=== PATIENT | female | born 1945 | race Caucasian/White ===

== ENCOUNTER → 2018-09-03 12:37 | Outpatient (CLI) | payer MEDICARE, SELFPAY ==
--- NOTE | 2018-09-03 12:40 | XR_ITS ---
XR DEXA axial skeleton HISTORY: ITS.REASON: OSTEOPENIA ORDERING PHYSICIAN: Chele Gibbs MD PATIENT AGE: 73 years COMPARISON: 07/15/2016 FINDINGS: The BMD measured at the Right femoral neck is 0.723 g/cm squared with a T score of -2.3. This is considered Osteopenic according to the World Health Organization criteria. Fracture risk is Moderate. Treatment is advised. The L1 L4 density has a T score of 0.2. The L-spine density has decreased by 4.4%. The hip density has decreased by 3.7%. There is moderate levoscoliosis IMPRESSION: Osteopenia with moderate fracture risk. Treatment is advised. Suggest follow-up exam August 2020
== END ==
PROVIDERS: PCP Internal Medicine Adolescent Medicine; Visit Provider Internal Medicine Adolescent Medicine
DX: M85.89 Other specified disorders of bone density and structure, multiple sites (principal)
CPT/HCPCS: 77080

== ENCOUNTER → 2019-01-24 12:55 | Outpatient (CLI) | payer MEDICARE, SELFPAY ==
--- NOTE | 2019-01-24 13:00 | XR_ITS ---
XR wrist LT min 3V HISTORY pain following injury ITS.REASON: LT WRIST INJURY ORDERING PHYSICIAN: Chele Gibbs MD PATIENT AGE: 73 years Comparison: None FINDINGS: No fracture or dislocation. No lytic or blastic change. There is normal mineralization . 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 IMPRESSION: No acute fracture. 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
--- NOTE | 2019-01-24 13:00 | XR_ITS ---
XR hand LT min 3V HISTORY: Pain following injury ITS.REASON: LT WRIST INJURY ORDERING PHYSICIAN: Chele Gibbs MD PATIENT AGE: 73 years FINDINGS: Transverse fracture involves the distal aspect of the fifth metacarpal at the metaphyseal diaphyseal junction with mild ulnar displacement and angulation of the distal fracture fragment. Artifact is present from patient's ring at the proximal phalanx of the fourth digit which could obscure an underlying fracture. Osteoarthritic changes are present at the first metacarpal carpal joint and at the DIP of the second, third, and fifth digits and the interphalangeal joint of the first digit. IMPRESSION: Mildly displaced fracture distal aspect of the fifth metacarpal
== END ==
PROVIDERS: PCP Internal Medicine Adolescent Medicine; Visit Provider Internal Medicine Adolescent Medicine
DX: S69.92XA Unspecified injury of left wrist, hand and finger(s), initial encounter (principal)
CPT/HCPCS: 73110; 73130

== ENCOUNTER → 2019-02-03 08:26 | Outpatient (CLI) | payer MEDICARE, SELFPAY ==
--- NOTE | 2019-02-03 08:33 | XR_ITS ---
PROCEDURE: XR HAND LT MIN 3V CLINICAL INDICATION: hand fracture Follow-up fracture COMPARISON: from 01/24/2019 FINDINGS: There is a splint present along the ulnar aspect of the hand and wrist and distal forearm stabilizing the minimally displaced fracture of the distal 5th metacarpal Osteoarthritic changes of the 1st metacarpal-carpal joint once again noted with periarticular calcification Other findings:None. IMPRESSION: Good alignment status post closed reduction 5th metacarpal fracture Dictated by: Damián Harris MD 02/03/2019 10:41 Signed by: <Electronically signed by Damián Harris MD in OV> 02/03/2019 10:41
== END ==
PROVIDERS: PCP Internal Medicine Adolescent Medicine; Visit Provider Orthopaedic Surgery
DX: S62.92XA Unspecified fracture of left hand, initial encounter for closed fracture (principal)
CPT/HCPCS: 73130

== ENCOUNTER → 2020-11-16 14:20 | Outpatient (CLI) | payer MEDICARE, SELFPAY ==
[2020-11-16 14:53] LABS: Basophils % 0.7 % (0.1-2.0); Eosinophils # 0.2 K/mm3 (0.0-0.4); Eosinophils % 4.5 % (0.1-12.0); Hematocrit 36.9 % (37.0-47.0); Hemoglobin 12.4 g/dL (12.2-16.2); Lymphocytes % 23.8 % (10-50); Mean Corpuscular HGB Conc 33.6 g/dL (31.8-35.4); Mean Corpuscular Hemoglobin 30.4 pg (27.0-31.2); Mean Corpuscular Volume 90.5 fl (81-99); Monocytes # 0.4 K/mm3 (0.1-1.0); Monocytes % 9.4 % (1.7-9.3); Neutrophils # 2.6 K/mm3 (1.8-7.8); Neutrophils % 61.6 % (37.0-80.0); Platelet Count 267 K/mm3 (142-424); Red Blood Count 4.08 M/mm3 (4.20-5.40); Red Cell Distribution Width 12.1 % (11.5-17.5); White Blood Count 4.2 K/mm3 (4.8-10.8)
[2020-11-16 15:08] LABS: Chloride 106 mmol/L (98-107); Sodium 141 mmol/L (136-145)
[2020-11-16 15:09] LABS: Potassium 4.8 mmoL/L (3.5-5.1)
[2020-11-16 15:11] LABS: Alanine Aminotransferase 41 U/L (12-78); Albumin Level 4.2 g/dl (3.5-5.0); Albumin/Globulin Ratio 1.3 (1.1-1.8); Alkaline Phosphatase 100 U/L (38-126); Anion Gap 13.8 mEq/L (5-15); Aspartate Amino Transferase 65 U/L (14-36); Bilirubin,Total 0.6 mg/dl (0.2-1.3); Blood Urea Nitrogen 11 mg/dl (7-17); Carbon Dioxide 26 mmol/L (22.0-30.0); Cholesterol 156 mg/dl (140-200); Estimated Glomerular Filt Rate 49 ml/min (>60); GFR (African American) 59 ML/MIN (>60); Globulin 3.2 g/dL (1.3-3.2); Glucose 97 mg/dl (74-100); Total Protein,Serum 7.4 g/dl (6.3-8.2); Triglycerides 73 mg/dl (30-150); VLDL Cholesterol 15 mg/dL (0-40)
[2020-11-16 15:12] LABS: Chol/HDL Ratio 2.6 (1-3.5); HDL Cholesterol 60 mg/dl (40-60)
[2020-11-16 15:23] LABS: Direct LDL Cholesterol 68.86 mg/dL (100-129)
== END ==
PROVIDERS: Visit Provider Internal Medicine Adolescent Medicine
DX: E78.5 Hyperlipidemia, unspecified (principal)
CPT/HCPCS: 36415; 80053; 80061; 85025

== ENCOUNTER → 2021-03-25 14:40 | Outpatient (CLI) | payer MEDICARE, SELFPAY ==
[2021-03-25 15:14] LABS: Basophils % 0.9 % (0.1-2.0); Eosinophils # 0.2 K/mm3 (0.0-0.4); Eosinophils % 3.7 % (0.1-12.0); Hemoglobin 12.5 g/dL (12.2-16.2); Lymphocytes # 1.2 K/mm3 (0.7-4.5); Lymphocytes % 27.7 % (10-50); Mean Corpuscular HGB Conc 32.8 g/dL (31.8-35.4); Mean Corpuscular Hemoglobin 30.7 pg (27.0-31.2); Mean Corpuscular Volume 93.6 fl (81-99); Mean Platelet Volume 7.9 fl (7.4-10.4); Monocytes # 0.3 K/mm3 (0.1-1.0); Monocytes % 8.2 % (1.7-9.3); Neutrophils # 2.5 K/mm3 (1.8-7.8); Neutrophils % 59.6 % (37.0-80.0); Platelet Count 232 K/mm3 (142-424); Red Blood Count 4.06 M/mm3 (4.20-5.40); Red Cell Distribution Width 12.3 % (11.5-17.5); White Blood Count 4.2 K/mm3 (4.8-10.8)
[2021-03-25 15:41] LABS: Alanine Aminotransferase 27 U/L (12-78); Albumin Level 3.7 g/dl (3.5-5.0); Albumin/Globulin Ratio 1.1 (1.1-1.8); Alkaline Phosphatase 73 U/L (38-126); Anion Gap 9.2 mEq/L (5-15); Aspartate Amino Transferase 49 U/L (14-36); Bilirubin,Total 0.2 mg/dl (0.2-1.3); Blood Urea Nitrogen 9 mg/dl (7-17); Calcium 8.7 mg/dl (8.4-10.2); Carbon Dioxide 28 mmol/L (22.0-30.0); Chloride 106 mmol/L (98-107); Chol/HDL Ratio 2.3 (1-3.5); Cholesterol 139 mg/dl (140-200); Estimated Glomerular Filt Rate 61 ml/min (>60); GFR (African American) 74 ML/MIN (>60); Globulin 3.4 g/dL (1.3-3.2); Glucose 72 mg/dl (74-100); HDL Cholesterol 60 mg/dl (40-60); Potassium 4.2 mmoL/L (3.5-5.1); Sodium 139 mmol/L (136-145); Total Protein,Serum 7.1 g/dl (6.3-8.2); Triglycerides 58 mg/dl (30-150); VLDL Cholesterol 12 mg/dL (0-40)
[2021-03-25 15:53] LABS: Direct LDL Cholesterol 58.83 mg/dL (100-129)
[2021-03-25 15:59] LABS: 25-OH Vitamin D, Total 67.6 ng/mL (30-100)
== END ==
PROVIDERS: Visit Provider Internal Medicine Adolescent Medicine
DX: E78.5 Hyperlipidemia, unspecified (principal); M85.89 Other specified disorders of bone density and structure, multiple sites
CPT/HCPCS: 36415; 80053; 80061; 82306; 85025

== ENCOUNTER → 2021-12-03 14:13 | Outpatient (POV) | payer MEDICARE, SELFPAY | PROVIDERS: Visit Provider Dermatology | DX: Z00.00 Encounter for general adult medical examination without abnormal findings (principal) ==

== ENCOUNTER 2024-11-28 07:52 | Outpatient (CLI) | payer MEDICARE, SELFPAY ==
--- OUTSIDE RECORDS SUMMARY | 2024-09-17 17:30 | XMS_ITS ---
Author Organization [facility] Address [address] [place] [address] Care Team Providers Care Medical Charge Entry Specialist Name Role Phone Chele Gibbs Primary Care Provider Migration, Provider Unavailable Unavailable REASON FOR VISIT [facility] To [facility] Conversion Encounter Medications Medication SIG (Take, Route, Frequency, Duration) Notes Start Date End Date Status Atorvastatin Calcium 40 MG 1 tab(s) orally once a day for 90 days Active busPIRone HCl 10 MG 1 tab(s) orally 2 times a day for 30 day(s) 03/26/2022 Active Triamcinolone Acetonide 0.1 % APPLY a thin layer TOPICALLY TO THE AFFECTED AREA(S) EVERY DAY for 30 Active PARoxetine HCl 30 MG 1 tab(s) orally once a day for 90 days Active Famotidine 20 MG 1 tab(s) orally 2 times a day for 90 days Active Tylenol Extra Strength 500 MG 2 tab(s) at bedtime Active CENTRUM SILVER WOMEN'S THERAPEUTIC MULTIPLE VITAMINS WITH MINERALS 1/2 TAB ORALLY ONCE A DAY *Please review for potential replacement for e-prescription and drug interaction check* Active Caltrate 600+D Plus Minerals 600-800 MG-UNIT 1 tab(s) orally once a day for 30 days 07/18/2016 Active Voltaren 1 % 2 g applied topically 4 times a day for 30 day(s) prn 09/23/2021 Active metroNIDAZOLE 0.75 % 1 navdeep applied topically 2 times a day for 30 days 03/26/2022 Active Encounters Encounter Location Date Provider Diagnosis [facility] [address] [place] [address] 09/17/2024 Provider Migration Plan Of Treatment Next Appt Details Provider Name:Chele Gibbs, 12/05/2024 09:15:00 AM, [address], [address], [place], [address], Progress Notes * Jimena LOPEZ SDOB:[birth year] (79 yo F)Acc No.[id number]:09/17/2024 Patient: Jimena DE JESUS S Provider: Clyde Burroughs :1945 A ge:79 Y S ex:Female Date:09/17/2024 Address:[address] [place] [address], [address], [place], [id number] Pcp:Chele Gibbs Subjective: * Chief Complaints: * 1 . [facility] To [facility]pan Conversion Encounter. * Medical History: * Medications: T aking Tylenol Extra Strength 500 MG Tablet 2 tab(s) at bedtime , Taking CENTRUM SILVER WOMEN'S THERAPEUTIC MULTIPLE VITAMINS WITH MINERALS TABLET 1/2 TAB ORALLY ONCE A DAY , Notes to Pharmacist: *Please review for potential replacement for e-prescription and drug interaction check*, Taking Caltrate 600+D Plus Minerals 600-800 MG-UNIT Tablet 1 tab(s) orally once a day , Taking Voltaren 1 % Gel 2 g applied topically 4 times a day , Notes to Pharmacist: prn, Taking metroNIDAZOLE 0.75 % Gel 1 navdeep applied topically 2 times a day , Taking busPIRone HCl 10 MG Tablet 1 tab(s) orally 2 times a day , Taking Triamcinolone Acetonide 0.1 % Cream APPLY a thin layer TOPICALLY TO THE AFFECTED AREA(S) EVERY DAY , Taking PARoxetine HCl 30 MG Tablet 1 tab(s) orally once a day , Taking Famotidine 20 MG Tablet 1 tab(s) orally 2 times a day , Taking Atorvastatin Calcium 40 MG Tablet 1 tab(s) orally once a day Objective: * Vitals: Assessment: Plan: * Treatment: * * Electronic signature of Prov ider Migration on 11/28/2024 at 07:53 AM EDT Sign off status: Pending * Provider: Clyde parrish Migration Date: 0 09/17/2024 Generated for Annalise rosales/Terra/Janelle on: 0 11/28/2024 07:53 AM EDT
--- OUTSIDE RECORDS SUMMARY | 2024-10-05 05:00 | XMS_ITS ---
Author Organization [facility] Address [address] [facility] [address] [facility] [address] [place] [address] Care Team Providers Care Blueprint Duplicator Name Role Phone Chele Gibbs Primary Care Provider Allergies No Known Allergies Reason For Referral Reason Please set up DEXA s can Diagnosis 1 Osteopenia of multip le sites (M85.89) Referral [facility] Referring Provider First Name Chele Referring Provider Last Name Bernie Referring Provider Speciality Internal M edicine Referred Organization Referred Address [address] [facility] [address] [facility], [place], [place],[address], Referred Provider Specialty Diagnostic R adiology General Notes TraYordanie 2024 02:33:40 PM >No precert required per [facility]- Sent to [facility] to schedule appt Referral Priority Routine REASON FOR VISIT 3 month check up, Medicare AWV Medications Medication SIG (Take, Route, Frequency, Duration) Notes Start Date End Date Status Meloxicam 7.5 MG 1 tablet Orally Once a day for 30 days 10/05/2024 Active Famotidine 20 MG 1 tab(s) orally 2 times a day for 90 days Active PARoxetine HCl 30 MG 1 tab(s) orally once a day for 90 days Active Triamcinolone Acetonide 0.1 % APPLY a thin layer TOPICALLY TO THE AFFECTED AREA(S) EVERY DAY for 30 Active Atorvastatin Calcium 40 MG 1 tab(s) orally once a day for 90 days Active Caltrate 600+D Plus Minerals 600-800 MG-UNIT 1 tab(s) orally once a day for 30 days 07/18/2016 Active CENTRUM SILVER WOMEN'S THERAPEUTIC MULTIPLE VITAMINS WITH MINERALS 1/2 TAB ORALLY ONCE A DAY *Please review for potential replacement for e-prescription and drug interaction check* Active Tylenol Extra Strength 500 MG 2 tab(s) at bedtime Active Problems Problem Type SNOMED Code ICD Code Onset Dates Problem Status W/U Status Risk Notes Problem [id number] Kyphoscoliosis (M41.9) Active confirmed Vital Signs Temperature 97.6 degrees Fahrenheit 10/06/19 25 Blood pressure systolic 120 mm Hg 10/06/19 25 Blood pressure diastolic 84 mm Hg 025 Heart Rate 76 /min 10/05/2024 Height 5 ft 5 in in 10/05/2024 Weight 125.6 lbs 10/05/2024 BMI 20.9 kg/m2 10/05/2024 Encounters Encounter Location Date Provider [facility] [address] [place] [address] 10/05/2024 Chele Gibbs Osteopenia of multip le sites M85.89 ; Generalized anxiety disorder F41.1 ; Mild episode of recurrent major depressive disorder F33.0 ; Low back pain at multiple sites M54.50 ; Kyphoscoliosis M41.9 and Routine medical exam Z00.00 Assessments Encounter Date Diagnosis (ICD Code) Assessment Notes Treatment Notes Treatment Clinical Notes Section Notes 10/05/2024 Osteopenia of multiple sites (ICD-10 - M85.89) Will reschedule DEXA, patient remains on low-dose bisphosphonate 10/05/2024 Generalized anxiety disorder (ICD-10 - F41.1) Doing well on Lexapro and other medications, is a great support 10/05/2024 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 No changes in plan 10/05/2024 Low back pain at multiple sites (ICD-10 - M54.50) Trial of meloxicam for chronic arthritic and back pain follow-up in 2 months for labs 10/05/2024 Kyphoscoliosis (ICD-10 - M41.9) Patient declines PT. Will check DEXA scan 10/05/2024 Routine medical exam (ICD-10 - Z00.00) Given patient''s advanced age is not a candidate for typical healthcare screening such as colonoscopy. No recent falls. Up-to-date with vaccinations. Nonsmoker. Depression screening not done because of active diagnosis. is healthcare surrogate. No alcohol use. Plan Of Treatment Medication Medication Name Sig Start Date Stop Date Notes Meloxicam 7.5 MG 1 tablet Orally Once a day for 30 days Treatment Notes Assessment Notes Osteopenia of multiple sites Will resche dule DEXA, patient remains on low-dose bisphosphonate Generalized anxiety disorder Doing well on Lexapro and other medications, is a great support Mild episode of recurrent ma iris depressive disorder Currently in partial remission. No green es in plan Low back pain at multiple sites Trial of meloxicam for chronic arthritic and back pain follow-up in 2 months for labs Kyphoscoliosis Patient declines PT. Will check DEXA scan Routine medical exam Given patient''s advanced age is not a candidate for typical healthcare screening such as colonoscopy. No recent falls. Up-to-date with vaccinations. Nonsmoker. Depression screening not done because of active diagnosis. is healthcare surrogate. No alcohol use. Pending Test Test Name Order Date DEXA Hip and Spine - Diagnostic 10/06/19 25 Referrals Referral Date Details 10/05/2024 10/05/2024, Please s et up DEXA scan, [address] [place], [address], Next Appt Details Follow Up: prn,2 Months, Wendy son: Provider Name:Chele Gibbs, 12/05/2024 09:15:00 AM, [address] [facility], [address], [place], [address], Progress Notes * JESSICA Jimena SDOB:[birth year] (79 yo F)Acc No.[id number]:10/05/2024 Progress Notes Patient: Jimena DE JESUS Provider: Griffin Gibbs MD :1945 A ge:79 Y S ex:Female Date:10/05/2024 Address:[address] [place] [address], [address], [id number] Subjective: * Chief Complaints: * 1 . 3 month check up. 2. Medicare AWV. * HPI: g en: Overall patient is feeling pretty good. Continues to have some back pain, feels like her spine is twisted from her previous scoliosis issues. Missed her DEXA scan because of weather. In regards to Medicare annual wellness visit, I reviewed her HRA, see notes below. * ROS: F UNCTIONAL STATUS: ADLS I ndependent for all ADL/IADL. * Medical History: S inusitis, Anxiety, Hypercholestrolemia, DEXA scan with osteopenia June 2015 - similar findings in 08/31, Negative cologuard testing 08/29, Normal mammogram 2004 - refused since that time, Deprssion with anxiety features. * Surgical History: c ataract surgery-bilateral eyes 04/2019. * Family History: F ather: , cancer. M other: , [place]. P aternal Grand Father: .?Paternal Grand Mother: . M aternal Grand Father: . M aternal Grand Mother: . P aternal uncle: . M aternal uncle: . M aternal aunt: . S iblings: alive, one sister- cancer. C hildren: alive. 1 brother(s) , 4 sister(s) . 1 son(s) , 1 daughter(s) - healthy. . * Social History: S moking A re you a:: nonsmoker. R ecreational drug use: no. Exercise: yes. Home smoke detector use: yes. Caffeine: yes, frequency:diet soda- 3-4 daily. Living Will: Yes. Alcohol: no. Sexually active: yes. Travel outside [place]: no. Occupation: retired. * Medications: T aking Tylenol Extra Strength 500 MG Tablet 2 tab(s) at bedtime , Taking CENTRUM SILVER WOMEN'S THERAPEUTIC MULTIPLE VITAMINS WITH MINERALS TABLET 1/2 TAB ORALLY ONCE A DAY , Notes to Pharmacist: *Please review for potential replacement for e-prescription and drug interaction check*, Taking Caltrate 600+D Plus Minerals 600-800 MG-UNIT Tablet 1 tab(s) orally once a day , Taking Triamcinolone Acetonide 0.1 % Cream APPLY a thin layer TOPICALLY TO THE AFFECTED AREA(S) EVERY DAY , Taking PARoxetine HCl 30 MG Tablet 1 tab(s) orally once a day , Taking Famotidine 20 MG Tablet 1 tab(s) orally 2 times a day , Taking Atorvastatin Calcium 40 MG Tablet 1 tab(s) orally once a day , Discontinued Voltaren 1 % Gel 2 g applied topically 4 times a day , Notes to Pharmacist: prn, Discontinued metroNIDAZOLE 0.75 % Gel 1 navdeep applied topically 2 times a day , Discontinued busPIRone HCl 10 MG Tablet 1 tab(s) orally 2 times a day , Medication List reviewed and reconciled with the patient * Allergies: N .K.D.A. Objective: * Vitals: N urse: KJ, Pain: 0, Temp: 97.6, RR: 16, HR: 76, BP: 120/84, Ht: 5 ft 5 in, Wt: 125.6, BMI:20.9. * Examination: G eneral Examination: General P leasant and Cooperative, NAD on RA,. Heart: R egular Rate and Rhythm, no murmur, rubs or gallops. HEENT: p harynx and tonsils normal, TM's normal. Lungs: L CTAB, No wheezes, crackles or rhonchi, Good air movement,. Abdomen: S oft, NTND, BSNA, No organomegaly or peritoneal signs.. Extremities: n ormal ROM,, no clubbing, no edema,, no foot lesions,. P revious noted kyphoscoliosis leaning to the right side. Assessment: * Assessment: 1. O steopenia of multiple sites - M85.89 (Primary) 2 . G eneralized anxiety disorder - F41.1 3 . M ild episode of recurrent major depressive disorder - F33.0 4 . L ow back pain at multiple sites - M54.50 5 . K yphoscoliosis - M41.9 6 . R outine medical exam - Z00.00 Plan: * Treatment: Notes: Will reschedule DEXA, patient remains on low-dose bisphosphonate?&#160 ;? Referral To: ?Reason:Please set up DEXA scan 2.?Generalized anxiety disorder? Notes: Doing well on Lexapro and other medications, is a great support?? 3.?Mild episode of recurrent major depressive disorder? Notes: Currently in partial remission. No changes in plan??4.?Low back pain at multiple sites? Start Meloxicam Tablet, 7.5 MG, 1 tablet, Orally, Once a day, 30 days, 30, Refills 1.?? Notes: Trial of meloxicam for chronic arthritic and back pain follow-up in 2 months for labs? 5.?Kyphoscoliosis? Notes: Patient declines PT. Will check DEXA scan??6.?Routine medical exam? Notes: Given patient''s advanced age is not a candidate for typical healthcare screening such as colonoscopy. No recent falls. Up-to-date with vaccinations. Nonsmoker. Depression screening not done because of active diagnosis. is healthcare surrogate. No alcohol use. ?? * Procedure Codes: G 0439 ANNUAL WELLNESS VST; PPS SUBSQT VST, 1170F FUNCTIONAL STATUS ASSESSMENT, G8399 PT W/DXA DOCUMENT OR ORDER, 1123F ADVANCED DIRECTIVE - HAS A LIVING WILL, G8420 BMI documented as normal, no follow up required., G8433 PT INELIG FOR DEPRESSION SCR, G9903 Pt scrn tbco id as non user, 1036F TOBACCO NON-USER, G8783 NORMAL BP READING DOC F/U NOT RQR * Follow Up: p rn,2 Months * * Sign off status: Completed true * Provider: Griffin Gibbs MD Date: 0 10/05/2024 Generated for Printi ng/Faxing/eTransmitting on: 0 11/28/2024 07:53 AM EDT History and Physical Notes * Examination Category Sub-Category Detail Notes Category Not es General Examination HEENT: pharynx and tonsils normal, TM's normal Previous noted kyphoscoliosis leaning to the right side Heart: Regular Rate and Rhy thm, no murmur, rubs or gallops Lungs: LCTAB, No wheezes, c rackles or rhonchi, Good air movement, Abdomen: Soft, NTND, BSNA, No organomegaly or peritoneal signs. Extremities: normal ROM,, no club otoniel, no edema,, no foot lesions, General Pleasant and Coopera tive, NAD on RA, Consultation Request Notes Referral Date Referring Provider Referred Provider Not es 10/05/2024 Chele Gibbs , Please set u p DEXA scan
--- OUTSIDE RECORDS SUMMARY | 2024-11-28 07:54 | XMS_ITS | Patient Health Record ---
Author Organization [facility] Address [address] [place] [address] Care Team Providers Care Cargo Service Agent Name Role Phone Chele Gibbs Primary Care Provider Migration, Provider Unavailable Unavailable Allergies No Known Allergies Results Component Value Reference Range Notes COMPREHENSIVE METABOLIC PANE L ([id number]) Reviewed date:07/14/2024 02:40:35 PM Interpretation: Performing Lab:CB, [facility] [address], [facility] ClinicBiexYL[address] Leo Lee Notes/Report: FASTING: YES FASTING:YES NON-FASTING; NON-FASTING; NON-FASTING; NON-FASTING GLUCOSE 79 65-99 mg/dL Fasting reference interval UREA NITROGEN (BUN) 14 7-25 mg/dL CREATININE 1.04 0.60-1.00 mg/dL EGFR 55 > OR = 60 mL/min/1.73m2 BUN/CREATININE RATIO 13 6-22 (calc) SODIUM 139 135-146 mmol/L POTASSIUM 4.4 3.5-5.3 mmol/L CHLORIDE 104 98-110 mmol/L CARBON DIOXIDE 29 20-32 mmol/L CALCIUM 9.1 8.6-10.4 mg/dL PROTEIN, TOTAL 7.2 6.1-8.1 g/dL ALBUMIN 3.6 3.6-5.1 g/dL GLOBULIN 3.6 1.9-3.7 g/dL (calc) ALBUMIN/GLOBULIN RATIO 1.0 1.0-2.5 (calc) BILIRUBIN, TOTAL 0.4 0.2-1.2 mg/dL ALKALINE PHOSPHATASE 64 37-153 U/L AST 56 10-35 U/L ALT 38 6-29 U/L COMPREHENSIVE METABOLIC PANE L ([id number]) Reviewed date:04/07/2024 02:32:45 PM Interpretation: Performing Lab:[facility], [facility] ClinicFplmKS[address] Leo Lee Notes/Report: FASTING: YES FASTING:YES NON-FASTING; NON-FASTING; NON-FASTING GLUCOSE 77 65-99 mg/dL Fasting reference interval UREA NITROGEN (BUN) 12 7-25 mg/dL CREATININE 0.96 0.60-1.00 mg/dL EGFR 61 > OR = 60 mL/min/1.73m2 BUN/CREATININE RATIO SEE NOTE: 6-22 (calc) Not Reported: BUN and Creatinine are within reference range. SODIUM 141 135-146 mmol/L POTASSIUM 4.1 3.5-5.3 mmol/L CHLORIDE 105 98-110 mmol/L CARBON DIOXIDE 28 20-32 mmol/L CALCIUM 9.0 8.6-10.4 mg/dL PROTEIN, TOTAL 7.2 6.1-8.1 g/dL ALBUMIN 3.6 3.6-5.1 g/dL GLOBULIN 3.6 1.9-3.7 g/dL (calc) ALBUMIN/GLOBULIN RATIO 1.0 1.0-2.5 (calc) BILIRUBIN, TOTAL 0.4 0.2-1.2 mg/dL ALKALINE PHOSPHATASE 77 37-153 U/L AST 57 10-35 U/L ALT 37 6-29 U/L LIPID PANEL, STANDARD ([id number]) Reviewed date:04/07/2024 02:32:45 PM Interpretation: Performing Lab:[facility], [facility] ClinicRzwqKE[address] Leo Lee Notes/Report: NON-FASTING; NON-FASTING; NON-FASTING FASTING:YES FASTING: YES CHOLESTEROL, TOTAL 131 <200 mg/dL HDL CHOLESTEROL 51 > OR = 50 mg/dL TRIGLYCERIDES 60 <150 mg/dL LDL-CHOLESTEROL 66 Reference range: <100 Desirable range <100 mg/dL for primary prevention; <70 mg/dL for patients with CHD or diabetic patients with > or = 2 CHD risk factors. LDL-C is now calculated using the Brian-Poe calculation, which is a validated novel method providing better accuracy than the Friedewald equation in the estimation of LDL-C. Brian SS et al. PHUC. 2013;310(19): 6105-3412 (http://education.[employer].Icera/faq/KGN506) CHOL/HDLC RATIO 2.6 <5.0 (calc) NON HDL CHOLESTEROL 80 <130 mg/dL (calc) For patients with diabetes plus 1 major ASCVD risk factor, treating to a non-HDL-C goal of <100 mg/dL (LDL-C of <70 mg/dL) is considered a therapeutic option. LIPID PANEL, STANDARD (7600) Reviewed date:07/14/2024 02:40:35 PM Interpretation: Performing Lab:EVELYNE, [facility], [employer] SolutionsMiowTE[address] Leo Lee Notes/Report: NON-FASTING; NON-FASTING; NON-FASTING; NON-FASTING FASTING:YES FASTING: YES CHOLESTEROL, TOTAL 126 <200 mg/dL HDL CHOLESTEROL 53 > OR = 50 mg/dL TRIGLYCERIDES 59 <150 mg/dL LDL-CHOLESTEROL 59 Reference range: <100 Desirable range <100 mg/dL for primary prevention; <70 mg/dL for patients with CHD or diabetic patients with > or = 2 CHD risk factors. LDL-C is now calculated using the Brian-Poe calculation, which is a validated novel method providing better accuracy than the Friedewald equation in the estimation of LDL-C. Brian SS et al. PHUC. 2013;310(19): 8561-1763 (http://education.[employer].Icera/faq/HLI102) CHOL/HDLC RATIO 2.4 <5.0 (calc) NON HDL CHOLESTEROL 73 <130 mg/dL (calc) For patients with diabetes plus 1 major ASCVD risk factor, treating to a non-HDL-C goal of <100 mg/dL (LDL-C of <70 mg/dL) is considered a therapeutic option. CBC (INCLUDES DIFF/PLT) (639 9) Reviewed date:07/14/2024 02:40:35 PM Interpretation: Performing Lab:EVELYNE, [facility] [address], [place]RdasCY[address] Leo Lee Notes/Report: NON-FASTING; NON-FASTING; NON-FASTING; NON-FASTING FASTING:YES FASTING: YES WHITE BLOOD CELL COUNT 3.6 3.8-10.8 Thousand/ uL RED BLOOD CELL COUNT 4.06 3.80-5.10 Million/uL HEMOGLOBIN 12.6 11.7-15.5 g/dL HEMATOCRIT 38.6 35.0-45.0 % MCV 95.1 80.0-100.0 fL MCH 31.0 27.0-33.0 pg MCHC 32.6 32.0-36.0 g/dL For adults, a slight decrease in the calculated MCHC value (in the range of 30 to 32 g/dL) is most likely not clinically significant; however, it should be interpreted with caution in correlation with other red cell parameters and the patient's clinical condition. RDW 11.4 11.0-15.0 % PLATELET COUNT 202 140-400 Thousand/uL MPV 9.9 7.5-12.5 fL ABSOLUTE NEUTROPHILS [phone] cells/uL ABSOLUTE LYMPHOCYTES 7888 510-7190 cells/uL ABSOLUTE MONOCYTES 418 200-950 cells/uL ABSOLUTE EOSINOPHILS 140 15-500 cells/uL ABSOLUTE BASOPHILS 22 0-200 cells/uL NEUTROPHILS 50.5 LYMPHOCYTES 33.4 MONOCYTES 11.6 EOSINOPHILS 3.9 BASOPHILS 0.6 CBC (INCLUDES DIFF/PLT) (639 9) Reviewed date:04/07/2024 02:32:45 PM Interpretation: Performing Lab:EVELYNE, [facility] [address] [facility], [facility] HospitalGwocBQ[address] Leo Lee Notes/Report: NON-FASTING; NON-FASTING; NON-FASTING FASTING:YES FASTING: YES WHITE BLOOD CELL COUNT 3.6 3.8-10.8 Thousand/ uL RED BLOOD CELL COUNT 4.10 3.80-5.10 Million/uL HEMOGLOBIN 12.6 11.7-15.5 g/dL HEMATOCRIT 38.4 35.0-45.0 % MCV 93.7 80.0-100.0 fL MCH 30.7 27.0-33.0 pg MCHC 32.8 32.0-36.0 g/dL For adults, a slight decrease in the calculated MCHC value (in the range of 30 to 32 g/dL) is most likely not clinically significant; however, it should be interpreted with caution in correlation with other red cell parameters and the patient's clinical condition. RDW 11.6 11.0-15.0 % PLATELET COUNT 212 140-400 Thousand/uL MPV 9.8 7.5-12.5 fL ABSOLUTE NEUTROPHILS 1714 4261-9268 cells/uL ABSOLUTE LYMPHOCYTES 8450 132-1883 cells/uL ABSOLUTE MONOCYTES 432 200-950 cells/uL ABSOLUTE EOSINOPHILS 162 15-500 cells/uL ABSOLUTE BASOPHILS 22 0-200 cells/uL NEUTROPHILS 47.6 LYMPHOCYTES 35.3 MONOCYTES 12.0 EOSINOPHILS 4.5 BASOPHILS 0.6 VITAMIN D,25-OH,TOTAL,IA (17 306) Reviewed date:07/14/2024 02:40:35 PM Interpretation: Performing Lab:EVELYNE, [facility], [facility] HospitalSwnqRX[address] Leo Lee Notes/Report: NON-FASTING; NON-FASTING; NON-FASTING; NON-FASTING FASTING:YES FASTING: YES VITAMIN D,25-OH,TOTAL,IA 45 30-100 ng/mL Vitamin D Status 25-OH Vitamin D: Deficiency: <20 ng/mL Insufficiency: 20 - 29 ng/mL Optimal: > or = 30 ng/mL For 25-OH Vitamin D testing on patients on D2-supplementation and patients for whom quantitation of D2 and D3 fractions is required, the QuestAssureD(TM) 25-OH VIT D, (D2,D3), LC/MS/MS is recommended: order code 90419 (patients >2yrs). See Note 1 Note 1 For additional information, please refer to http://education.[employer]/faq/MGL963 (This link is being provided for informational/ educational purposes only.) Reason For Referral Reason DEXA scan Diagnosis 1 Osteopenia of multip le sites (M85.89) Referral Organization [facility] Referring Provider First Name Chele Referring Provider Last Name Bernie Referring Provider Speciality Internal M edicine Referred Organization [facility] Referred Address [address] [facility] [address] [facility], [place], [place],[address], Referred Provider Specialty Diagnostic R adiology Referral Priority Routine Referral Appointment Date 08/01/2024 Reason Please set up DEXA s can Diagnosis 1 Osteopenia of multip le sites (M85.89) Referral Organization [facility] Referring Provider First Name Chele Referring Provider Last Name Bernie Referring Provider Speciality Internal M edicine Referred Organization [facility] Referred Address [address] [facility] [address] [place], [place],[address],[place] Referred Provider Specialty Diagnostic R adiology General Notes Miriam Dutta 2024 02:33:40 PM >No precert required per [facility]- Sent to [facility] to schedule appt Referral Priority Routine Medications Medication SIG (Take, Route, Frequency, Duration) Notes Start Date End Date Status Meloxicam 7.5 MG 1 tablet Orally Once a day for 30 days 10/05/2024 Active Famotidine 20 MG 1 tab(s) orally 2 times a day for 90 days Active Triamcinolone Acetonide 0.1 % APPLY a thin layer TOPICALLY TO THE AFFECTED AREA(S) EVERY DAY for 30 Active Atorvastatin Calcium 40 MG 1 tab(s) orally once a day for 90 days Active Caltrate 600+D Plus Minerals 600-800 MG-UNIT 1 tab(s) orally once a day for 30 days 07/18/2016 Active [facility] TH[facility]APE[facility] MULTIPLE VITAMINS WITH MINERALS 1/2 TAB ORALLY ONCE A DAY *Please review for potential replacement for e-prescription and drug interaction check* Active PARoxetine HCl 30 MG 1 tab(s) orally once a day for 90 days Active Tylenol Extra Strength 500 MG 2 tab(s) at bedtime Active Immunizations Vaccine Route Administration Date Status Comme nts Boostrix IM Intramuscular 01/04/2024 Administered Covid Pasha Unknown 10/24/2020 Administered Fluvirin--Influenza vaccine 3+ year IM Intramuscular 04/18/2008 Administered Fluzone High Dose IM Intramuscular 02/19/2018 Administered Fluzone High Dose IM Intramuscular 02/21/2019 Administered Fluzone High Dose IM Intramuscular 04/04/2020 Administered Fluzone High Dose IM Intramuscular 03/25/2021 Administered Fluzone High Dose IM Intramuscular 03/26/2022 Administered Fluzone High Dose IM Intramuscular 03/02/2023 Administered Fluzone High Dose IM Intramuscular 04/06/2024 Administered Fluzone High Dose IM Intramuscular 04/06/2024 Administered Influenza (Fluzone)--Medicare only IM Intramuscular 04/25/2016 Administered Influenza (Fluzone)--Medicare only IM Intramuscular 02/20/2017 Administered Pneumococcal Vaccine IM Intramuscular 04/18/2008 Administe red Prevnar PCV-13 (Pneumococcal conjugate 13) IM Intramuscular 07/11/2016 Administered SHINGRIX IM Intramuscular 08/31/2023 Administered Problems Problem Type SNOMED Code ICD Code Onset Dates Problem Status W/U Status Risk Notes Problem 32328491 Generalized anxi ety disorder (F41.1) Active confirmed Problem 10116152 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) Active confirmed Problem 221875022 Hyperlipemia, idiopathic familial (E78.5) Active confirmed Problem 709170920 GERD without esophagitis (K21.9) Active confirmed Problem 67032497 Recurrent major depressive disorder, in partial remission (F33.41) Active confirmed Problem 919099916 Mild episode of recurrent major depressive disorder (F33.0) Active confirmed Problem 117735289 Osteopenia of multiple sites (M85.89) Active confirmed Problem 472314959 Kyphoscoliosis (M41.9) Active confirmed Problem 713476008 BMI 22.0-22.9, adult (Z68.22) Active confirmed Vital Signs Heart Rate 76 /min 10/05/2024 Temperature 97.6 degrees Fahrenheit 10/05/2024 Blood pressure diastolic 84 mm Hg 10/05/2024 Height 5 ft 5 in in 10/05/2024 Blood pressure systolic 120 mm Hg 10/05/2024 Weight 125.6 lbs 10/05/2024 BMI 20.9 kg/m2 10/05/2024 Encounters Encounter Location Date Provider Diagnosis [facility] [address] [facility] [address] [place], [place] [id number] 09/17/2024 Provider Migration [facility] [address] [facility] [address] [place], [place] [id number] 01/04/2024 Chele Gibbs Encounter for immunization Z23 ; GERD without esophagitis K21.9 ; Recurrent major depressive disorder, in partial remission F33.41 ; BMI 22.0-22.9, adult Z68.22 ; Generalized anxiety disorder F41.1 and Routine medical exam Z00.00 [facility] [address] [facility] [address] [place], [place] [id number] 04/06/2024 Chele Gibbs Hyperlipemia, idiopathic familial E78.5 ; Osteopenia of multiple sites M85.89 ; Generalized anxiety disorder F41.1 and Immunization(s) administered Z23 [facility] [address] [place] [address] 07/13/2024 Chele Gibbs Hyperlipemia, idiopathic familial E78.5 ; Osteopenia of multiple sites M85.89 and Recurrent major depressive disorder, in partial remission F33.41 [facility] [address] [facility] [address] [place] [address] 10/05/2024 Chele Gibbs Osteopenia of multip le sites M85.89 ; Generalized anxiety disorder F41.1 ; Mild episode of recurrent major depressive disorder F33.0 ; Low back pain at multiple sites M54.50 ; Kyphoscoliosis M41.9 and Routine medical exam Z00.00 [facility] [address] [facility] [address] [place] [address] 09/08/2024 Chele Gibbs Assessments Encounter Date Diagnosis (ICD Code) Assessment Notes Treatment Notes Treatment Clinical Notes Section Notes 04/06/2024 Hyperlipemia, idiopathic familial (ICD-10 - E78.5) Due for statin refill. Will check lipid profile and CMP to make sure things are okay before we refill or need to increase the dose. Otherwise no changes in plan. Please note I have ordered labs and review all labs personally 04/06/2024 Osteopenia of multiple sites (ICD-10 - M85.89) Ongoing treatment for osteopenia. DEXA scans up-to-date 10/05/2024 Generalized anxiety disorder (ICD-10 - F41.1) Doing well on Lexapro and other medications, is a great support 10/05/2024 Osteopenia of multiple sites (ICD-10 - M85.89) Will reschedule DEXA, patient remains on low-dose bisphosphonate 01/04/2024 GERD without esophagitis (ICD-10 - K21.9) Stable GERD, on H2 dana OTC. Doing well with this. Otherwise feels good. No weight loss or red flag symptoms 01/04/2024 Encounter for immunization (ICD-10 - Z23) Up-to-date with pneumonia vaccine. Flu shot this fall. Tetanus update today 07/13/2024 Hyperlipemia, idiopathic familial (ICD-10 - E78.5) Overall doing well. No problems with atorvastatin. No changes in plan Please note I have ordered labs I will review these personally 07/13/2024 Osteopenia of multiple sites (ICD-10 - M85.89) Most recent DEXA scan 2018. Check vitamin D levels. Adjust therapy as needed. Will repeat DEXA scan to make sure we do not need to ramp up any kind of therapy 07/13/2024 Recurrent major depressive disorder, in partial remission (ICD-10 - F33.41) Stable on paroxetine. 01/04/2024 Recurrent major depressive disorder, in partial remission (ICD-10 - F33.41) Doing well on current medications 04/06/2024 Generalized anxiety disorder (ICD-10 - F41.1) Doing well with ongoing paroxetine and BuSpar in therapy. No changes 10/05/2024 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 No changes in plan 04/06/2024 Immunization(s) administered (ICD-10 - Z23) 10/05/2024 Low back pain at multiple sites (ICD-10 - M54.50) Trial of meloxicam for chronic arthritic and back pain follow-up in 2 months for labs 01/04/2024 BMI 22.0-22.9, adult (ICD-10 - Z68.22) Stable weight, good nutrition 01/04/2024 Generalized anxiety disorder (ICD-10 - F41.1) See notes below 10/05/2024 Kyphoscoliosis (ICD-10 - M41.9) Patient declines PT. Will check DEXA scan 10/05/2024 Routine medical exam (ICD-10 - Z00.00) Given patient''s advanced age is not a candidate for typical healthcare screening such as colonoscopy. No recent falls. Up-to-date with vaccinations. Nonsmoker. Depression screening not done because of active diagnosis. is healthcare surrogate. No alcohol use. 01/04/2024 Routine medical exam (ICD-10 - Z00.00) Out of range for colon screening, mammogram has been declined. Lifelong non-smoker. Safe home environment. Falls have not occurred in the past couple of years. Good functional status. Cognitive impairment not noted with 3/3 word recall. Living well discussed. She is very concerned because she has a very fragmented relationship with her daughter-who is from a previous marriage-this is her only child. She is worried that if something happens to her that her daughter will assume legal responsibility for her care and she wishes to avoid this. My geographic area intelligence officer who is a Gamer has helped her with a new living will form and will assist her in naming the person or person she wishes to have care for her in this event. Plan Of Treatment Pending Test Test Name Order Date DEXA Hip and Spine - Screening 5 H-CMP 06/20/2010 H-LIPID PANEL 06/20/2010 H-TSH 06/20/2010 C-URINE CULTURE 10/26/2013 DEXA Hip and Spine - Diagnostic 10/06/19 25 DEXA Hip and Spine - Diagnostic 07/13/19 25 DEXA Hip and Spine - Diagnostic 04/26/20 18 M-Vitamin D 25 Hydroxy 03/25/2021 Next Appt Details Provider Name:Chele Gibbs, 12/05/2024 09:15:00 AM, [address] [facility] [address] [facility], [address], [place], [address], Insurance Providers Payer Name Payer Address Payer Phone Subscriber Number Group Number Insured Name Patient Relationship to Insured Coverage Start Date Coverage End Date [employer] [address] [place] [address] [phone] [id number] Jimena Crocker Self - patient is the insured Medical (General) History Medical History History ICD Code sinusitis anxiety hypercholestrolemia DEXA scan with osteopenia June 2015 - similar findings in 08/31 Negative cologuard testing 08/29 Normal mammogram 2004 - refused since at time deprssion with anxiety features Surgical History Surgery Date(Month/Year) cataract surgery-bilateral eyes 04/2019
--- OUTSIDE RECORDS SUMMARY | 2024-11-28 07:54 | XMS_ITS ---
Author Organization Unknown TREATMENT PLAN [facility] Start Date Provider Encounter for Check-up [id number] [facility]
[2024-11-28 08:13] LABS: Basophils % 0.5 % (0.1-2.0); Eosinophils # 0.1 Kmm3 (0.0-0.4); Eosinophils % 3.2 % (0.1-12.0); Hematocrit 36.6 % (37.0-47.0); Hemoglobin 12.2 g/dL (12.2-16.2); Immature Granulocytes # 0.01 10^3uL; Immature Granulocytes % 0.2 %; Lymphocytes # 1.5 K/mm3 (0.7-4.5); Lymphocytes % 35.5 % (10-50); Mean Corpuscular HGB Conc 33.3 g/dL (31.8-35.4); Mean Corpuscular Hemoglobin 31.3 pg (27.0-31.2); Mean Corpuscular Volume 93.8 fl (81-99); Mean Platelet Volume 9.3 fl (7.4-10.4); Monocytes # 0.6 K/mm3 (0.1-1.0); Monocytes % 12.9 % (1.7-9.3); Neutrophils # 2.1 K/mm3 (1.8-7.8); Neutrophils % 47.7 % (37.0-80.0); Nucleated Red Blood Cells # 0 10^3/uL; Nucleated Red Blood Cells % 0 %; Platelet Count 187 K/mm3 (142-424); Red Cell Distribution Width 10.9 % (11.5-17.5); Red Cell Distribution Width-SD 37.1 fL; White Blood Count 4.3 K/mm3 (4.8-10.8)
[2024-11-28 09:36] LABS: Albumin Level 3.8 g/dl (3.5-5.0)
[2024-11-28 09:37] LABS: Chloride 107 mmol/L (98-107); Potassium 4.8 mmoL/L (3.5-5.1); Sodium 139 mmol/L (136-145)
[2024-11-28 09:39] LABS: Alanine Aminotransferase 33 U/L (12-78); Anion Gap 6.8 mEq/L (5-15); Aspartate Amino Transferase 59 U/L (14-36); Blood Urea Nitrogen 12 mg/dl (7-17); Carbon Dioxide 30 mmol/L (22.0-30.0); Estimated Glomerular Filt Rate 61 ml/min (>60); GFR (African American) 73 ML/MIN (>60)
[2024-11-28 09:40] LABS: Albumin/Globulin Ratio 1.2 (1.1-1.8); Alkaline Phosphatase 64 U/L (38-126); Bilirubin,Total 0.3 mg/dl (0.2-1.3); Calcium 9.3 mg/dl (8.4-10.2); Chol/HDL Ratio 2.6 (1-3.5); Cholesterol 134 mg/dl (140-200); Globulin 3.3 g/dL (1.3-3.2); Glucose 85 mg/dl (74-100); HDL Cholesterol 51 mg/dl (40-60); Total Protein,Serum 7.1 g/dl (6.3-8.2); Triglycerides 53 mg/dl (30-150); VLDL Cholesterol 11 mg/dL (0-40)
[2024-11-28 09:51] LABS: Direct LDL Cholesterol 51.13 mg/dL (100-129)
== END 2024-11-28 23:59 | disposition home or self-care (01) ==
LOC: LAB 07:52
PROVIDERS: PCP Internal Medicine; Visit Provider Internal Medicine
DX: Z00.00 Encounter for general adult medical examination without abnormal findings (principal); D64.9 Anemia, unspecified; E78.5 Hyperlipidemia, unspecified
CPT/HCPCS: 36415; 80053; 80061; 85025

== ENCOUNTER 2025-03-07 11:30 | Outpatient (CLI) | payer MEDICARE, SELFPAY ==
--- NOTE | 2025-03-07 11:38 | XR_ITS ---
FINAL REPORT CLINICAL HISTORY: Fall 3 WEEKS AGO injury, swelling FINDINGS: AP, oblique, and lateral views of the left hand were obtained. There is no prior exam for comparison. There is no acute fracture of the left hand. There is multijoint degenerative disease, most pronounced at the first carpometacarpal joint. The soft tissues are normal. IMPRESSION: Degenerative joint disease without acute osseous abnormality. Reviewed, Interpreted and Dictated by Lynne Fletcher MD Transcribed by Inez Lorenz Authenticated and [facility]
== END 2025-03-07 23:59 | disposition home or self-care (01) ==
LOC: RAD 11:31
PROVIDERS: PCP Internal Medicine; Visit Provider Internal Medicine
DX: M19.042 Primary osteoarthritis, left hand (principal); M79.89 Other specified soft tissue disorders; S69.90XA Unspecified injury of unspecified wrist, hand and finger(s), initial encounter; W19.XXXA Unspecified fall, initial encounter
CPT/HCPCS: 73130